=== PATIENT | male | born 1960 | race Caucasian/White ===

== ENCOUNTER 2021-08-11 11:17 | Outpatient (CLI) | payer BC, SELFPAY | END 2021-08-11 11:18 | disposition home or self-care (01) | PROVIDERS: PCP Specialist; Visit Provider Specialist | DX: L82.1 Other seborrheic keratosis (principal); D22.72 Melanocytic nevi of left lower limb, including hip | CPT/HCPCS: 88305; 88342 ==

== ENCOUNTER 2023-10-25 12:11 | Outpatient (CLI) | payer BC, SELFPAY | END 2023-10-25 12:12 | disposition home or self-care (01) | LOC: CHSLAB 12:15 | PROVIDERS: PCP Specialist; Visit Provider Specialist | DX: D22.5 Melanocytic nevi of trunk (principal) | CPT/HCPCS: 88305 ==